=== PATIENT | male | born 1995 | race Caucasian/White ===

== ENCOUNTER 2018-04-19 15:53 | Emergency (ER) | payer OTHER ==
--- NOTE | 2018-04-19 17:50 | ULT ---
LEFT LOWER EXTREMITY VENOUS ULTRASOUND: HISTORY: Left lower extremity pain and edema. TECHNIQUE: Multiplanar su-scale and color Doppler images were obtained in a left lower extremity venous ultras ound. Spectral analysis of the Doppler waveforms was performed. FINDINGS: The left common femoral vein, profunda femoral vein, superficial femoral vein, and popliteal vein are normal in appearance without visible thrombus. These vessels demonstrate normal compression, flow, and augmentation. The posterior tibial vein and greater saphenous vein are also patent. IMPRESSION: No evidence of left lower extremity deep venous thrombosis. POS: [facility]
--- NOTE | 2018-04-19 18:40 | RAD ---
LEFT ANKLE THREE VIEWS: HISTORY: Left ankle pain and swelling. COMPARISON: None. FINDINGS: Three views of the left ankle show no evidence of acute fracture or dislocation. Mild diffuse soft t issue swelling is seen. No degenerative changes are present. IMPRESSION: No evidence of acute osseous abnormality. POS: [facility]
== END 2018-04-19 19:00 | disposition home or self-care (01) ==
LOC: ERS 15:53
DX: S93.402A Sprain of unspecified ligament of left ankle, initial encounter (principal); L03.116 Cellulitis of left lower limb; F17.210 Nicotine dependence, cigarettes, uncomplicated; F41.9 Anxiety disorder, unspecified; Z79.899 Other long term (current) drug therapy; X58.XXXA Exposure to other specified factors, initial encounter